=== PATIENT | female | born 1975 | race Hispanic/Latino ===

== ENCOUNTER 2016-04-07 07:53 | Inpatient (IN) | payer SELFPAY ==
[2016-04-07] MEDS ORDERED: ANCEF/STERILE WATER 2 GM/20 ML IV NR (09:00)
--- NOTE | 2016-04-07 09:03 | Short Stay Summary ---
Short Stay Documentation Date of service: 04/07/16 Narrative H&P: C/O: Pelvic pain Heavy cycles 40 year-old who presents with above complaints and issues. A transvaginal ultrasound which showed a 9 cm uterus with dilated left tube consistent with hydrosalpinx with severe adnexal varices. Also had a polyp noted at about 2 cm. A Pap smear obtained in January 2016 shows ASCUS with negative high-risk HPV SKETCHER history: Regular cycles, dysmenorrhea, dyspareunia No STD Medhx"Migraine SHANNON Sughx: Breast augmentation, Essure in 2005 (which failed) then BTL in 2008 OBhx: # 5 (last in 2008) All:TOradol and Stadol (?palpitations and SOB) Fshx:, no smoking ROS: Patient claims her last cycle was extremely heavy with clots On exam, WF appears in no acute distress Abdomen is soft Speculum exam shows normal cervix no lesions, Bimanual exam shows ~8-9 cm tender uterus + adnexal tenderness, no masses A: Pelvic pain AUB/HMB-?P Hydrosalpinx P: After discussion about options, she chose hysterectomy. Discussed that I performed laparoscopic-assisted vaginal hysterectomy. Reviewed the risks in detail including injury to surrounding organs and structures especially the urinary system. All questions were answered, and she signed consent. We'll proceed with laparoscopic-assisted vaginal hyterectomy once OR available. - History Past Medical History: migraines Past Surgical History: Other (BTL and Essure) Social history: , full code, no smoking, no alcohol abuse, no prescription drug abuse, no IV drug use - Allergies and Medications Current Medications: Allergies butorphanol tartrate [From Stadol] Allergy (Verified 04/02/16 11:22) heart races, can't breathe ketorolac tromethamine [From Toradol] Allergy (Verified 04/02/16 11:22) heart races, can't breathe Home Medications Medication Instructions Recorded Confirmed Last Taken Type Ibuprofen [Motrin] 800 mg PO Q8HR PRN 04/02/16 04/04/16 Unknown History Active Medications Cefazolin Sodium (Ancef/Sterile Water 2 Gm/20 Ml) 2 gm IV PREOP NR - Physical exam General appearance: no acute distress, well-nourished HEENT: Atraumatic, PERRLA Lungs: Clear to auscultation, Normal air movement Breasts: deferred Heart: Regular rate, Normal S1, Normal S2 Gastrointestinal: normal, normoactive bowel sounds, no distended, no masses, no guarding Female Genitourinary: normal Extremities: no ischemia - Brief post op/procedure progress note Date of procedure: 04/07/16 Pre-op diagnosis: pelvic pain, abnormal uterine bleeding, hydrosalpinx Post-op diagnosis: same Procedure: laparopscoppic assisted vaginal hysterectomy with ovarian conservation Anesthesia: GETA Findings: Operative note Surgeon: SHEN GUILLEN Estimated blood loss: other (200 mls) Pathology: list (uterus cervix, tubes) Specimen disposition: to lab Condition: stable - Hospital course Hospital course: Uncomplicated Post-OP course. She is discharged in stable condition - Disposition Condition at discharge: Good Disposition: DISCHARGED TO HOME OR SELFCARE - Discharge Diagnoses (1) S/P laparoscopic assisted vaginal hysterectomy (LAVH) Status: Acute Short Stay Discharge Plan Activity: advance as tolerated, no driving until cleared by PCP (No driving on narcotics) Weight Bearing Status: Weight Bear as Tolerated Diet: regular Wound: open to air Follow up with: PRIMARY CAREMD [Primary Care Provider] - 7 Days SHEN GUILLEN MD [Staff Physician] - 14 Days Prescriptions: Ibuprofen [Motrin 800 MG tab] 800 mg PO Q8HR PRN #30 tablet PRN Reason: Analgesia Multivitamin with Iron [Multivitamins with Iron] 1 each PO DAILY #30 tablet HYDROcodone/APAP 5-325 [[place] 5/325] 1 each PO Q6HR PRN #30 tablet PRN Reason: Pain
[2016-04-07] MEDS ORDERED: ZOFRAN IV PRN (09:11)
--- NOTE | 2016-04-07 09:11 | Anesthesia Day of Surgery ---
Anesthesia Day of Surgery - Day of Surgery Patient Examined: Yes Patient H&P Reviewed: Yes Patient is NPO: Yes
--- NOTE | 2016-04-07 09:11 | Anesthesia Consultation ---
Anesthesia Consult and Med Hx Date of service: 04/07/16 - Airway Anesthetic Teeth Evaluation: Dentures ROM Head & Neck: Adequate Mental/Hyoid Distance: Adequate Mallampati Class: Class II Intubation Access Assessment: Probably Good (glued in, will not come out) - Pulmonary Exam CTA: Yes - Cardiac Exam Cardiac Exam: RRR - Pre-Operative Health Status ASA Pre-Surgery Classification: ASA2 Proposed Anesthetic Plan: General - Pulmonary Hx Smoking: No Hx Asthma: No Hx Sleep Apnea: No - Cardiovascular System Hx Hypertension: No - Central Nervous System Hx Seizures: No CVA: No Hx Psychiatric Problems: No - Gastrointestinal Hx Gastroesophageal Reflux Disease: Yes - Endocrine Hx Thyroid Disease: Yes Hx Hyperthyroidism: Yes (not on meds) - Hematic Hx Anemia: Yes (with ) - Other Systems Hx Cancer: No - Additional Comments Anesthesia Medical History Comments: ponv
[2016-04-07] MEDS ORDERED: VERSED IV NR (09:15)
[2016-04-07] MEDS ORDERED: TRANSDERM-SCOP TD NR (09:15)
[2016-04-07] MEDS ORDERED: REGLAN PO NR (09:15)
[2016-04-07] MEDS ORDERED: DIPRIVAN 10 MG/ML IV ONE (09:17)
[2016-04-07] MEDS ORDERED: XYLOCAINE MPF 2% ONE (09:17)
[2016-04-07] MEDS ORDERED: DILAUDID ONE ×2 (09:18→11:46)
[2016-04-07 09:34] LABS: Hematocrit 39.4 % (30.3-42.9); Hemoglobin 13.7 gm/dl (10.1-14.3)
[2016-04-07] MEDS ORDERED: PEPCID PO NR (10:00)
[2016-04-07] MEDS ORDERED: LACTATED RINGERS 1,000 ML IV SCH (10:00)
[2016-04-07] MEDS ORDERED: MARCAINE 0.25% INFILTRATI ONE (10:28)
[2016-04-07] MEDS ORDERED: NACL 0.9% IR ONE (10:28)
[2016-04-07] MEDS ORDERED: ZEMURON IV ONE (10:36)
[2016-04-07] MEDS ORDERED: REGLAN ONE (10:46)
[2016-04-07] MEDS ORDERED: ZOFRAN ONE (10:47)
[2016-04-07] MEDS ORDERED: DECADRON ONE (10:47)
[2016-04-07] MEDS ORDERED: NACL 0.9% 1000 ML 1,000 ML ONE (11:50)
[2016-04-07 12:10] LABS: Blood Urea Nitrogen 8 mg/dL (7-17)
--- NOTE | 2016-04-07 12:51 | Operative Report ---
Operative Report Operative Report: DATE: 04/07/2016 PREOPERATIVE DIAGNOSIS: Chronic pelvic pain, abnormal uterine bleeding, hydrosalpinx POSTOP DIAGNOSIS: Same NAME OF PROCEDURE: Laparoscopic assisted vaginal hysterectomy with ovarian conservation, bilateral salpingectomy, removal of the Essure device SURGEON: SHEN GUILLEN MD NEMATOLOGY TEACHER: Feng Andres ANESTHESIA: General endotracheal EBL: 200 mL PATHOLOGY SPECIMEN: Uterus, cervix, tubes and sure device URINE OUTPUT: 100 mL FINDINGS: 9 Week size bulky uterus, dilated left ovarian tube, Stringy Essure device insert noted DESCRIPTION OF PROCEDURE: After informed consent, patient was taken to the operating room where she was prepped and draped in a sterile fashion. She was placed in dorsolithotomy position then a devi catheter was placed without difficulty . Garner speculum speculum was placed in the patient's vagina and single-tooth was used to grab the anterior lip. A [employer] uterine manipulator was advanced into the patient's cervical os without difficulty and the balloon was inflated. Attention was then turned to the patient's abdomen where 1/4 percent Marcaine was injected then a 1-1/2 cm incision was made in the umbilical fold; using S retractors, the subcutaneous tissue was dissected down to exposed the fascia. Fascia was grasped with [place] forceps, elevated and an incision was made in the midline using Metzenbaum scissors. Fascial incision was extended with use of Margie forceps and then S retractors were placed in the incisional hole. Peritoneal layer was seen and grasped with Allises 2; this was elevated and incision was made in the midline using Metzenbaum scissors. S retractors were placed in the incisional hole in the peritoneum and then a Melton trocar was advanced into the patient's abdomen without difficulty. CO2 gas was used to obtain intra-abdominal insufflation. Bulbous enlarged uterus was noted immediately; normal ovaries and dilated tubes as noted above. Attention was then turned to the patient's left and right lower quadrants where under direct visualization 10 mm trocars were advanced into the patient's abdomen without difficulty. Using 10 mm LigaSure, the round ligaments and the utero-ovarian ligaments on both sides were grasped and cauterized and transected. Uterine arteries on both sides were grasped with LigaSure then cauterized and transected. After a period of observation confirming hemostasis attention was then turned to the patient's vagina. Noted stringy Essure device protruding from the right fallopian tube, none seen on the left. This metallic device was grasped with the graspers and removed. The fallopian tubes were then grasped and using the 10 mm before cauterized and transected; removed from the surgical field and sent to pathology. The Devi catheter and a [employer]care uterine manipulator were removed, and weighted speculum was placed in the patient's vagina. A single tenaculum was then used to grab the cervix. Using a scalpel a circumferential incision was made around the cervix; the vaginal cuff was then pushed cephalad away from the cervix. Attention was then turned to the patient's posterior fornix; using smooth pickups, the peritoneal layer covering the posterior fornix was grasped, elevated and an incision made using Metzenbaums. Entry into the peritoneal cavity was confirmed then the long weighted speculum was placed into into the peritoneal opening. We then proceeded to serially grab the uterosacrals on both sides using Edgar forceps; these were clamped cut and suture ligated using 0 Vicryl. We Serially grabbed the cardinal ligament complex on both sides with Edgar clamps and proceeded to clamp cut and suture ligate these. We made sure the bladder was bladder flap was pushed away from our surgical site. The broad and the utero-ovarian ligaments had been previously transected from above. The uterus was then delivered from the vagina and removed from the surgical field. We then grabbed the vaginal cuff with Allis forceps and elevated this; using 0 Vicryl on a runner angle stitch was placed on the vaginal cuff and then the posterior cuff was closed in a running locked fashion. The anterior cuff was then closed using 0 Vicryl. This process disclosed entire vaginal cuff. We then packed the vaginal with packing gauze. We then turned our attention back to the patient's abdomen with insufflation was again obtained using CO2 gas. 10 mm laparoscope was advanced into the patient's abdomen without difficulty. Inspection of the vaginal cuff showed hemostasis; copious amounts of suction irrigation were used showing no active bleeding. This was despite reducing the intra-abdominal pressure slightly. Tissell hemostatic agent was then placed over the vaginal cuff as a means to prevent future bleeding. All instruments were then withdrawn from the patient' s abdomen under direct visualization. All fascial openings were closed using 0 Vicryl with a single [id number] stitch and then the skin was closed in a subcuticular manner with 4-0 Monocryl. Instrument counts were correct 2; she tolerated the procedure well she did receive 2 g of Ancef prior to the procedure and was transferred the PACU in stable condition thank you
[2016-04-07] MEDS ORDERED: NARCAN 0.4 MG/1 ML IV PRN (13:02)
[2016-04-07] MEDS: DILAUDID IV PRN ×4 (13:05→13:25)
--- NOTE | 2016-04-07 13:09 | Post Anesthesia Evaluation ---
- Post Anesthesia Evaluation Patient Participated: Yes Airway Patent: Yes Stable Respiratory Function: Yes Nausea/Vomiting: No Temp > 96.8F: Yes Pain Manageable: Yes Adequeate Hydration: Yes Anesthesia Complications: No Block Receding Appropriately: Not Applicable Patient on Ventilator: No
[2016-04-07] MEDS: MORPHINE PCA 30MG/30ML IV SCH (13:28)
[2016-04-07] MEDS ORDERED: NACL 0.9% 1000 ML 1,000 ML IV SCH (14:00)
[2016-04-07] MEDS: D5LR 1,000 ML IV SCH ×2 (16:32→22:44)
[2016-04-07] MEDS: COLACE PO SCH (22:40)
[2016-04-07] MEDS: TYLENOL PO PRN (22:44)
[2016-04-08 04:49] LABS: Hematocrit 30.6 % (30.3-42.9); Hemoglobin 10.6 gm/dl (10.1-14.3)
[2016-04-08] MEDS: D5LR 1,000 ML IV SCH (05:37)
[2016-04-08] MEDS: MORPHINE PCA 30MG/30ML IV SCH (05:42)
[2016-04-08] MEDS: TYLENOL PO PRN ×2 (05:45→20:20)
[2016-04-08] MEDS: MOTRIN PO SCH ×3 (07:40→22:10)
--- NOTE | 2016-04-08 07:48 | Progress Note ---
Assessment and Plan POD # 1 s/p LAVH -Doing well P: -Discontinue IV fluids and hep lock -Encourage ambulation -Disposition in the p.m. - Patient Problems (1) S/P laparoscopic assisted vaginal hysterectomy (LAVH) Current Visit: Yes Status: Acute Subjective - Subjective Date of service: 04/08/16 Principal diagnosis: POD # 1 s/p LAVH Interval history: Patient seen and examined, stable overnight doing well. Still has sreedhar- incisional pain, but no vomiting no fever or chills. Vaginal pack removed with no bleeding noted Patient reports: appetite normal, no voiding normally ([place] still in place) Objective - Vital Signs Latest vital signs: Vital Signs Temp Pulse Pulse Resp BP BP Pulse Ox 04/08/16 04:00 98.8 F 68 18 93/47 04/08/16 00:00 98.7 F 66 18 93/52 04/07/16 21:00 97.9 F 76 16 86/50 04/07/16 14:15 97.8 F 94 H 16 102/65 04/07/16 13:45 88 10 L 97/58 98 04/07/16 13:30 99 H 12 105/57 97 04/07/16 13:28 13 04/07/16 13:25 10 L 04/07/16 13:15 97 H 10 L 102/65 97 04/07/16 13:10 92 H 12 105/59 96 04/07/16 13:05 91 H 13 106/69 97 04/07/16 13:00 97 H 10 L 113/66 97 04/07/16 12:58 97.4 F L 102 H 10 L 108/70 97 04/07/16 09:30 98.7 F 90 18 107/57 98 04/07/16 08:48 98.7 F 90 18 107/57 98 Intake and Output 04/07/16 04/08/16 04/08/16 22:59 06:59 14:59 Intake Total 1095 1180 Output Total 150 400 Balance 945 780 Intake: IV 1095 1000 D5lr 1,000 ml @ 125 mls/ 625 1000 hr IV DIRECT ROCÍO Rx#: [id number] NaCl 0.9% 1000 ml 1,000 470 ml @ 42 mls/hr IV DIRECT ROCÍO Rx#:[id number] Intake, Free Water 180 Output: Urine 150 400 Indwelling Catheter 150 400 Other: Total, Output Amount 150 400 Voiding Method Indwelling Catheter - Exam Abdomen: Present: normal appearance, soft, tenderness (sreedhar-incisional tenderness), normal bowel sounds. Absent: distention, guarding, rigidity Extremities: Present: normal Incision: Present: dry, intact - Labs Labs: Abnormal lab results 04/07/16 Range/Units Unknown Creatinine 0.5 L (0.7-1.2) mg/dL
[2016-04-08] MEDS ORDERED: ZOFRAN IV PRN (07:56)
[2016-04-08] MEDS: NORCO 5/325 PO PRN ×2 (11:46→17:49)
[2016-04-08] MEDS: COLACE PO SCH ×2 (11:46→22:10)
[2016-04-08 14:05] LABS: Blood Urea Nitrogen 3 mg/dL (7-17)
[2016-04-08] MEDS: SUDAFED PO PRN (14:38)
[2016-04-09] MEDS: NORCO 5/325 PO PRN (00:41)
[2016-04-09] MEDS: SUDAFED PO PRN ×2 (00:41→12:46)
[2016-04-09] MEDS: MOTRIN PO SCH ×2 (06:15→12:46)
--- NOTE | 2016-04-09 06:39 | Progress Note ---
Assessment and Plan POD # 2 s/p LAVH -Doing well P: -Will try clear broth this morning -Discharge home if tolerates - Patient Problems (1) S/P laparoscopic assisted vaginal hysterectomy (LAVH) Current Visit: Yes Status: Acute Subjective - Subjective Date of service: 04/09/16 Principal diagnosis: POD # 2 s/p LAVH Interval history: Patient seen and examined, stable overnight. She complains of nausea vomiting last night, she has been passing gas and ambulating without difficulty. Seems to be able to keep fluids down but throughout crackers she ate yesterday. Headache still present but improved Patient reports: appetite normal, voiding normally, pain well controlled, flatus , ambulating normally, nauseated, no dizzy ambulation Objective - Vital Signs Latest vital signs: Vital Signs Temp Pulse Resp BP 04/09/16 04:00 98.2 F 95 H 18 102/67 04/09/16 00:00 98.2 F 84 20 102/61 04/08/16 21:00 97.7 F 82 18 92/54 04/08/16 17:05 98.3 F 74 18 104/60 04/08/16 12:09 97.9 F 76 20 94/60 04/08/16 08:49 98.2 F 76 18 90/50 04/08/16 07:40 18 Intake and Output 04/08/16 04/08/16 04/09/16 14:59 22:59 06:59 Intake Total 480 120 Output Total 1100 1400 400 Balance -620 -1400 -280 Intake: Oral 240 120 Intake, Free Water 240 Output: Urine 1100 1400 400 Indwelling Catheter 400 Void 700 1400 400 Other: Total, Intake Amount 120 120 Total, Output Amount 300 1400 200 Voiding Method Indwelling Catheter # Voids Void 1 2 - Exam Abdomen: Present: normal appearance, soft, normal bowel sounds. Absent: distention, tenderness, guarding, rigidity Incision: Present: dry, intact - Labs Labs: Abnormal lab results 04/08/16 Range/Units 13:00 BUN 3 L (7-17) mg/dL Creatinine 0.4 L (0.7-1.2) mg/dL
[2016-04-09] MEDS: COLACE PO SCH (09:37)
[2016-04-09 12:29] VITALS: BP 105/55
== END 2016-04-09 14:45 | disposition home or self-care (01) | DRG 743 ==
LOC: OR 07:53 → OB 12:56
PROVIDERS: ADMIT Obstetrics & Gynecology Gynecology; ATTEND Obstetrics & Gynecology Gynecology
PROC: 0UT9FZZ Resection of Uterus, Via Natural or Artificial Opening With Percutaneous Endoscopic Assistance (ICD-10-PCS; principal; 2016-04-07)
PROC: 0UT7FZZ Resection of Bilateral Fallopian Tubes, Via Natural or Artificial Opening With Percutaneous Endoscopic Assistance (ICD-10-PCS; 2016-04-07)
DX: N70.11 Chronic salpingitis (principal); R10.2 Pelvic and perineal pain; N93.9 Abnormal uterine and vaginal bleeding, unspecified; Z90.710 Acquired absence of both cervix and uterus; Z88.6 Allergy status to analgesic agent; Z88.8 Allergy status to other drugs, medicaments and biological substances
CPT/HCPCS: 36415; 81025; 82565; 84520; 85014; 85018; 86850; 86900; 86901; 88307; C1765; C9250; J0690; J1100; J1170; J2250; J2270; J2405; J2704; J2765; J7030; J7120; J7121